=== PATIENT | male | born 1990 | race Caucasian/White ===

== ENCOUNTER 2017-01-07 07:05 | Day surgery (SDC) | payer OTHER ==
[~2017-01-07] VITALS: Ht 172.7 cm; Wt 79.4 kg
[2017-01-07] VITALS (10 sets, daily range): BP systolic 100–121; BP diastolic 42–75
[~2017-01-07 07:05] MED LIST: ceFAZolin 1gm/50ml Premix 50 ML IV ONE; celeBREX 200mg Cap **SURGERY PATIENTS ONLY ORAL ONE; oxyCONTIN 20mg tab ORAL ONE
--- NOTE | 2017-01-07 07:06 | Pre-Procedure Note/Attestation ---
Pre-Procedure Note/Attestation Complete Prior to Procedure Planned Procedure: left Procedure Narrative: knee arthroscopy, possible synovectomy, Indications for Procedure Pre-Operative Diagnosis: left knee internal derangement Attestation I attest that I discussed the nature of the procedure; its benefits; risks and complications; and alternatives (and the risks and benefits of such alternatives ), prior to the procedure, with the patient (or the patient's legal access representative). I attest that, if there was a reasonable possibility of needing a blood transfusion, the patient (or the patient's legal access representative) was given the [facility] standardized written summary, pursuant to the Alexandr Stepan Blood Safety Act ([place] Health and Safety Code # 1645, as amended). I attest that I re-evaluated the patient just prior to the surgery and that there has been no change in the patient's H&P, except as documented below: KATHY GRANADOS Jan 07, 2017 07:06
--- NOTE | 2017-01-07 07:07 | Operative Note - PDOC ---
Operative Note Operative Note Pre-op Diagnosis: left knee internal derangement Procedure: see op report Post-op Diagnosis: same as pre-op plus Operative Findings: consistent w/pre-op dx studies Anesthesia: MAC Specimen: none Complications: none Condition: stable Estimated Blood Loss: minimal Implant(s) used?: KATHY Becerra Jan 07, 2017 07:07
[2017-01-07] MEDS ORDERED: LAMICTAL200 MG ORAL (07:42)
[2017-01-07] MEDS ORDERED: REGLAN10 M1 ORAL (07:42)
[2017-01-07] MEDS ORDERED: Morphine Sulfate PF 10 ML ONE (08:40)
[2017-01-07] MEDS ORDERED: Kenalog-40 1ml Vial ONE (08:40)
[2017-01-07] MEDS ORDERED: Bupivacaine w/Epi 0.75% 30ml Vial INJ ONE (08:40)
[2017-01-07] MEDS ORDERED: Lidocaine 1% 10mg/ml/EPI 0.01mg/ml 50ml INJ ONE (08:41)
[2017-01-07] MEDS ORDERED: Duramorph PF 10mg/10ml amp IV ONE (08:41)
[2017-01-07] MEDS ORDERED: Bupivacaine 0.25% Inj 30ml INJ ONE (08:41)
[2017-01-07] MEDS ORDERED: Ketorolac 30mg Inj ONE (08:41)
[2017-01-07] MEDS ORDERED: Lidocaine 1% MPF 10mg/ml 5ml ONE (08:45)
[2017-01-07] MEDS ORDERED: Dexamethasone 4mg/ml vial ONE (08:45)
[2017-01-07] MEDS ORDERED: Sterile Water Irrig 1000ml IRRIG ONE (08:45)
[2017-01-07] MEDS ORDERED: Propofol 200mg/20ml IV ONE (08:45)
[2017-01-07] MEDS ORDERED: Alfentanil 2ml Inj ONE (08:45)
[2017-01-07] MEDS ORDERED: fentaNYL 100 mcg/2 mL IV ONE (08:45)
[2017-01-07] MEDS ORDERED: Midazolam 2mg/2ml Inj ONE (08:45)
[2017-01-07] MEDS ORDERED: NS Irrig 1000ml ONE (08:45)
[2017-01-07] MEDS ORDERED: NS Irrig 4000ml IRRIG ONE (08:45)
[2017-01-07] MEDS ORDERED: LR 1000ml ONE (08:45)
[2017-01-07] MEDS ORDERED: Sodium Chloride 10ml vial INJ ONE (08:45)
[2017-01-07] MEDS ORDERED: LR 1000ml 1,000 ML IVLG SCH (08:59)
--- NOTE | 2017-01-07 08:59 | Anethesia Preoperative Eval ---
Anesthesia Pre-op PMH/ROS General Date of Evaluation: Jan 07, 2017 Time of Evaluation: 08:44 Anesthesiologist: Dylon ASA Score: ASA 1 Mallampati Score Class I : Soft palate, uvula, fauces, pillars visible Class II: Soft palate, uvula, fauces visible Class III: Soft palate, base of uvula visible Class IV: Only hard plate visible Mallampati Classification: Class I Surgeon: Mccarthy Diagnosis: L Knee Pain Surgical Procedure: L Knee Arthroscpy Anesthesia History: none Family History: no anesthesia problems Allergies: Coded Allergies: No Known Allergies (Unverified , 01/07/17) Medications: see eMAR Past Medical History Neurologic/Psychiatric: Reports: depression/anxiety Anesthesia Pre-op Phys. Exam Physician Exam Last Vital Signs Date Time Temp Pulse Resp B/P (MAP) Pulse Ox O2 Delivery O2 Flow Rate FiO2 01/07/17 07:48 98.0 73 19 112/62 96 Room Air Constitutional: NAD Neurologic: CN 2-12 intact Cardiovascular: RRR Respiratory: CTA Gastrointestinal: S/NT/ND Airway Exam Mallampati Score: Class I MO: full ROM: full Teeth: intact Anesthesia Pre-op A/P Risk Assessment & Plan Assessment: ASA `1 Plan: GA, BIS Status Change Before Surgery: No Pre-Antibiotics Dru Grams Ancef IV Given Within 1 Hr of Incision: Yes Time Given: 08:51 Tremaine Osborne MD Jan 07, 2017 08:59
[2017-01-07] MEDS ORDERED: oxyCODONE HCL/Acetaminophen 5/325mg ORAL PRN (09:00)
[2017-01-07] MEDS ORDERED: Midazolam 2mg/2ml Inj IVP PRN (09:00)
[2017-01-07] MEDS ORDERED: DiphenhydrAMINE 50mg/ml Inj IVP PRN (09:00)
[2017-01-07] MEDS ORDERED: Hydromorphone 0.5mg/0.5ml inj IVP PRN (09:00)
[2017-01-07] MEDS ORDERED: Ketorolac 60mg Inj IV PRN (09:00)
[2017-01-07] MEDS ORDERED: Ketorolac 30mg Inj IV PRN (09:00)
[2017-01-07] MEDS ORDERED: LORazepam Inj 2mg/ml 1ml IV PRN (09:00)
[2017-01-07] MEDS ORDERED: Norco 5mg/325mg tab ORAL PRN ×2 (09:00→18:01)
[2017-01-07] MEDS ORDERED: Norco 7.5mg/325mg tab ORAL PRN (09:00)
[2017-01-07] MEDS ORDERED: Atropine Inj 1mg/10ml Syr IV PRN (09:00)
[2017-01-07] MEDS ORDERED: fentaNYL 100 mcg/2 mL IV PRN (09:00)
[2017-01-07] MEDS ORDERED: Metoclopramide 10mg/2ml Inj IVP PRN (09:00)
--- NOTE | 2017-01-07 09:01 | Immediate Post-Op Evaluation ---
Immediate Post-Op Evalulation Immediate Post-Op Evalulation Procedure: L Knee Arthroscopy Date of Evaluation: Jan 07, 2017 Time of Evaluation: 09:44 IV Fluids: 800 LR Blood Products: 0 Estimated Blood Loss: 10 Urinary Output: 0 Blood Pressure Systolic: 104 Blood Pressure Diastolic: 41 Pulse Rate: 79 Respiratory Rate: 16 O2 Sat by Pulse Oximetry: 95 Temperature (Fahrenheit): 97.4 Pain Score (1-10): 2 Nausea: No Vomiting: No Complications 0 Patient Status: awake, reacts, patent, none Hydration Status: adequate Dru Grams Ancef IV Given Within 1 Hr of Incision: Yes Time Given: 08:51 Tremaine Osborne MD Jan 07, 2017 09:01
--- NOTE | 2017-01-07 09:02 | 48 Hour Post Anesthesia Eval ---
Post Anesthesia Evaluation Procedure: L Knee Arthroscopy Date of Evaluation: Jan 07, 2017 Time of Evaluation: 12:14 Blood Pressure Systolic: 118 0: 72 Pulse Rate: 74 Respiratory Rate: 18 Temperature (Fahrenheit): 98.4 O2 Sat by Pulse Oximetry: 97 Airway: patent Nausea: No Vomiting: No Pain Intensity: 2 Hydration Status: adequate Cardiopulmonary Status: Stable Mental Status/LOC: patient returned to baseline Follow-up Care/Observations: 0 Post-Anesthesia Complications: 0 Follow-up care needed: ready to discharge Tremaine Osborne MD Jan 07, 2017 09:02
--- NOTE | 2017-01-07 17:45 | Operative Note - Dictated ---
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 POSTOPERATIVE DIAGNOSIS: Hypertrophic fat pad/ligamentum mucosum. PROCEDURES: 1. Left knee diagnostic arthroscopy. 2. Synovectomy medial, lateral, and patellofemoral compartments. SURGEON: Hernando Mccarthy M.D. ANESTHESIA: General. INDICATIONS FOR PROCEDURE: The patient is a pleasant gentleman, who has had continued anterior knee pain. He continued to have anterior knee pain, popping and catching sensations. He had MRI that did not show any significant chondral damage, but clinically felt like this is probably related to the hypertrophic fat pad syndrome. Given that he had failed conservative treatment, elected to undergo left knee arthroscopy, possible synovectomy, meniscectomy, and chondroplasty based on the intraoperative findings. Risks, limitations, expectations, and complications of the procedure were discussed in detail including continued pain, need for future surgery, risk of anesthesia, medical complications, etc. All questions addressed. DESCRIPTION OF PROCEDURE: An informed consent was obtained. The patient was brought to the operating room. The patient was placed under general anesthesia. The patient then had tourniquet applied in left proximal thigh. Left leg was prepped and draped in sterile manner. Time-out was performed. A 0.25% Marcaine plain was injected in the knee. Portal sites were injected with 1% lidocaine with epinephrine. An Esmarch was used to exsanguinate the extremity. Skin incision was made and a trocar was introduced into the knee joint. Of note, on introducing the trocar, there was significant resistance going through the lateral gutter. Once the patellofemoral compartment was entered, there was hypertrophic synovial tissue in the retropatellar fat pad area. Medial gutter was entered and free of any loose bodies. Medial compartment was entered and medial working portal was established. Synovectomy of the anterior portion of the medial component was performed to better visualize the medial compartment. The meniscus was probed and noted to be intact. No chondral damage. The synovectomy was then completed from intercondylar notch and lateral compartment. Once that was completed, ACL was probed and noted to be intact. Lateral compartment was entered and free from the meniscal chondral damage. At this point, camera was repositioned in the patellofemoral compartment. Complete synovectomy was completed. Once that was done, the instruments removed. Portal sites closed with 3-0 Monocryl sutures. Intraarticular injection containing 0.25% Marcaine, 30 mg of Toradol, and 5 mL Duramorph was injected. The patient was awoken and taken to recovery with stable vital signs. ESTIMATED BLOOD LOSS: None. COMPLICATIONS: None. SPECIMENS: None. IMPLANTS: None. Hernando Mccarthy M.D. DR: May JOB#: [id number] CC: BRADY
[2017-01-07] MEDS ORDERED: D5 1/2NS 1,000 ML IV SCH (18:01)
[2017-01-07] MEDS ORDERED: HYDROmorphone 1mg/ml Carpuject SUBQ PRN (18:01)
[2017-01-07] MEDS ORDERED: Tylenol #3 tab (300mg/30mg) ORAL PRN (18:01)
== END 2017-01-07 11:25 | disposition home or self-care (01) ==
LOC: SUR 07:05
DX: M79.4 Hypertrophy of (infrapatellar) fat pad (principal); M23.92 Unspecified internal derangement of left knee; F32.9 Major depressive disorder, single episode, unspecified; F41.9 Anxiety disorder, unspecified; Z87.891 Personal history of nicotine dependence; F90.9 Attention-deficit hyperactivity disorder, unspecified type
CPT/HCPCS: 29876; 97161; J0690; J1100; J1885; J2250; J2274; J2405; J2704; J3010; J3301; J3490; J7120; 94003; 94150